=== PATIENT | female | born 1980 | race Caucasian/White ===

== ENCOUNTER 2017-10-01 03:36 | Inpatient (IN) | payer SELFPAY ==
[2017-10-01] VITALS (9 sets, daily range): BP systolic 99–147; BP diastolic 55–80
[~2017-10-01] VITALS: Ht 162.6 cm; Wt 73.9 kg
[~2017-10-01 03:36] MED LIST: CLON0.5T PO; ESZO3TAB28 PO; FAMO-63 PO; FLUO20CA16 PO; IBUP200T44 PO; LANS30CA66 PO; MECL25TA3 PO; NICO1PAT21 TP; PROCHLORPERAZINE RC; PYRI60TA PO
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
[2017-10-01] MEDS: IV RINGERS SOLUTION,LACTATED 1,000 ML IV ONE ×2 (03:50→05:00)
[2017-10-01 04:09] LABS: BASO # 0.1 x10^3/uL (0.0-0.2); BASO % 1 % (0-3); EOS # 0.1 x10^3/uL (0.0-0.7); EOS % 2 % (0-3); HEMATOCRIT 44.3 % (36.0-47.0); HEMOGLOBIN 15.2 g/dL (12.0-15.5); LYMPH # 2.7 x10^3/uL (1.0-4.8); LYMPH % 33 % (24-48); MEAN CORPUSCULAR HEMOGLOBIN 30 pg (25-35); MEAN CORPUSCULAR HGB CONC 34 g/dL (31-37); MEAN CORPUSCULAR VOLUME 87 fL (79-100); MONO # 0.5 x10^3/uL (0.0-1.1); MONO % 6 % (0-9); NEUT # 4.7 x10^3uL (1.8-7.7); NEUT % 58 % (31-73); PLATELET COUNT 233 x10^3/uL (140-400); RED BLOOD COUNT 5.09 x10^6/uL (3.50-5.40); RED CELL DISTRIBUTION WIDTH 14.5 % (11.5-14.5); WHITE BLOOD COUNT 8.1 x10^3/uL (4.0-11.0)
[2017-10-01 04:25] LABS: ETHANOL < 10 mg/dL (0-10); SALIC 8.5 mg/dL (2.8-20.0)
[2017-10-01 04:26] LABS: ACETAMIN < 2.0 mcg/mL (10-30)
[2017-10-01] MEDS ORDERED: MVI, ADULT NO.4 WITH VIT K 10 ML, FOLIC ACID SYRINGE for ER 1 MG, THIAMINE 100 MG in IV... IV ONE ×4 (04:30)
[2017-10-01 04:37] LABS: ANION GAP 20 (6-14); BLOOD UREA NITROGEN 7 mg/dL (7-20); CARBON DIOXIDE 18 mmol/L (21-32); CHLORIDE 105 mmol/L (98-107); CREATININE 1.1 mg/dL (0.6-1.0); GFR 55.3; GLUCOSE 145 mg/dL (70-99); MAGNESIUM 2.1 mg/dL (1.8-2.4); POTASSIUM 3.6 mmol/L (3.5-5.1); SODIUM 143 mmol/L (136-145)
[2017-10-01 04:50] LABS: BARBITURATES NEG (NEG); BENZODIAZEPINES POS (NEG); CANNABINOIDS POS (NEG); COCAINE NEG (NEG); METHADONE NEG (NEG); OPIATES NEG (NEG); PHENCYCLIDINE NEG (NEG)
[2017-10-01 04:51] LABS: AMORPHOUS SEDIMENT,UR PRESENT /HPF; BACTERIA,URINE FEW /HPF (0-FEW); BILIRUBIN,URINE NEG (NEG); CLARITY,URINE HAZY; COLOR,URINE YELLOW; GLUCOSE,URINE NEG (NEG); HYALINE CASTS, URINE OCC /HPF; NITRITE,URINE NEG (NEG); RBC,URINE OCC /HPF (0-2); SQUAMOUS EPITHELIAL CELL,UR FEW /LPF; UROBILINOGEN,URINE 0.2 mg/dL (0.2 mg/dL); WBC,URINE OCC /HPF (0-4)
[2017-10-01 04:52] LABS: AMPHETAMINE/METHAMPHETAMINE NEG (NEG)
[2017-10-01] MEDS ORDERED: MVI, ADULT NO.4 WITH VIT K 10 ML VIAL IV ONE (05:11)
[2017-10-01] MEDS ORDERED: FOLIC ACID 5 MG/ML SYRINGE for ER IV ONE (05:11)
[2017-10-01] MEDS ORDERED: THIAMINE IM 200 MG/2 ML VIAL. IM ONE (05:11)
[2017-10-01 05:48] LABS: BGAS PH 7.27 (7.35-7.45)
[2017-10-01] MEDS ORDERED: SODIUM BICARB ADULT 8.4% 50 MEQ/50 ML DISP.SYRIN. IV ONE (06:00)
[2017-10-01] MEDS ORDERED: HALOPERIDOL LACT 5 MG/ML VIAL. IVP ONE (06:00)
[2017-10-01] MEDS ORDERED: LORazepam 2 MG/ML VIAL IV ONE (06:00)
--- NOTE | 2017-10-01 07:50 | RAD ---
Portable chest, 10/01/2017: HISTORY: Overdose, possible suicide The heart size and pulmonary vascularity are within normal limits. No pulmonary infiltrate is seen. There is no evidence of pleural fluid or pneumothorax. IMPRESSION: No acute cardiopulmonary abnormality is detected. Electronically signed by: Bethel Bautista MD (10/01/2017 7:47 AM) [facility]
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
== END 2017-10-01 17:13 | disposition left against medical advice (07) | DRG 918 ==
LOC: ER 03:36 → ICU 04:00
PROVIDERS: ADMIT Internal Medicine; ATTEND Internal Medicine
DX: T50.902A Poisoning by unspecified drugs, medicaments and biological substances, intentional self-harm, initial encounter (principal); F43.10 Post-traumatic stress disorder, unspecified; F17.200 Nicotine dependence, unspecified, uncomplicated; R45.850 Homicidal ideations; Z82.49 Family history of ischemic heart disease and other diseases of the circulatory system; Z85.89 Personal history of malignant neoplasm of other organs and systems; Z86.11 Personal history of tuberculosis; Z91.410 Personal history of adult physical and sexual abuse; Z87.442 Personal history of urinary calculi; Z88.1 Allergy status to other antibiotic agents; Z88.8 Allergy status to other drugs, medicaments and biological substances; Z90.49 Acquired absence of other specified parts of digestive tract
CPT/HCPCS: 36415; 36600; 71045; 80048; 80307; 81001; 81025; 82140; 82553; 82803; 83735; 83880; 84484; 84702; 85025; 85610; 85651; 85730; 87641; G0480; G6039; J1630; J2060; J7120; 82003; G0479; J7030